=== PATIENT | female | born 1950 | race Caucasian/White ===

== ENCOUNTER 2016-03-09 12:12 | Outpatient (CLI) | payer OTHER | END 2016-03-09 12:13 | disposition home or self-care (01) | DX: Z00.00 Encounter for general adult medical examination without abnormal findings (principal); E03.9 Hypothyroidism, unspecified ==

== ENCOUNTER 2016-03-29 13:00 | Outpatient (CLI) | payer OTHER | END 2016-03-29 13:01 | disposition home or self-care (01) | DX: Z12.31 Encounter for screening mammogram for malignant neoplasm of breast (principal) ==

== ENCOUNTER 2016-05-17 09:32 | Outpatient (CLI) | payer OTHER | END 2016-05-17 09:33 | disposition home or self-care (01) | DX: E03.9 Hypothyroidism, unspecified (principal) ==

== ENCOUNTER → 2016-08-17 | Outpatient (CLI) | payer OTHER ==
[2016-08-17 13:52] LABS: THYROID STIMULATING HORMONE 2.38 uIU/mL (0.34-5.60)
== END ==
LOC: LAB.WCP 08:00
PROVIDERS: ATTEND Physician Assistant Medical
DX: E03.9 Hypothyroidism, unspecified (principal)
CPT/HCPCS: 36415; 84439; 84443

== ENCOUNTER 2017-06-11 08:49 | Outpatient (CLI) | payer MEDICARE, OTHER ==
--- NOTE | 2017-06-11 16:50 | XRAY Report ---
EXAM: RIGHT SHOULDER RADIOGRAPHY EXAM DATE: 06/11/2017 09:44 AM. CLINICAL HISTORY: RIGHT ARM PAIN. COMPARISON: None. TECHNIQUE: 3 views. FINDINGS: Bones: Normal. No fracture or bone lesion. Joints: The glenohumeral and acromioclavicular joints are intact with minimal degenerative changes of the AC joint. Soft tissues: The visualized hemithorax is unremarkable. No soft tissue swelling. IMPRESSION: Minimal degenerative changes at the AC joint. [facility] Referring Provider Line: [phone] SITE ID: [id number]
--- NOTE | 2017-06-11 21:20 | XRAY Report ---
EXAM: CERVICAL SPINE RADIOGRAPHY EXAM DATE: 06/11/2017 09:42 AM. CLINICAL HISTORY: ARM PAIN RIGHT. COMPARISONS: None. TECHNIQUE: 3 views. FINDINGS: Alignment: Normal. No spondylolisthesis or scoliosis. Bones: The cervical vertebral bodies and posterior elements are well visualized from the skull base t hrough C7-T1. No fracture or bone lesion. Disks: Multilevel moderate disk degeneration with endplate proliferation and anterior osteophyte mid and lower cervical spine. Facets: Moderate facet arthrosis. Soft Tissues: Heterogeneous mineralization projecting the left paravertebral region at C6-C7. No prev ertebral soft tissue swelling. The visualized lung apices are grossly clear. IMPRESSION: Multilevel moderate disk degeneration and facet arthrosis. Heterogeneous mineralization p rojecting in the left paravertebral region at C6-C7 may be due to extensive facet proliferation. [facility] Referring Provider Line: [phone] SITE ID: [id number]
== END 2017-06-11 08:50 | disposition home or self-care (01) ==
LOC: DI 08:49
PROVIDERS: ATTEND Family Medicine
DX: M50.30 Other cervical disc degeneration, unspecified cervical region (principal); M47.892 Other spondylosis, cervical region
CPT/HCPCS: 72040

== ENCOUNTER 2017-06-21 14:36 | Outpatient (CLI) | payer MEDICARE, OTHER ==
--- NOTE | 2017-06-21 18:29 | MRI Report ---
EXAM: MRI CERVICAL SPINE WITHOUT CONTRAST EXAM DATE: 06/21/2017 03:27 PM. CLINICAL HISTORY: Cervical radiculopathy. COMPARISONS: None. TECHNIQUE: Multiplanar, multisequence T1-weighted and fluid-sensitive sequences of the cervical spine without contrast. Other: None. FINDINGS: Neurologic Structures: The visualized posterior fossa structures are unremarkable. No signal abnormal ity in the visualized spinal cord. Alignment: There is relative straightening of the normal cervical lordotic curvature. Bone Marrow: No marrow edema or stress reaction. No erosive or destructive changes. Interspace Levels/Facets: C1-C2: Some arthritic changes, no stenosis. C2-C3: Disk osteophyte complex is present. Mild central stenosis. Moderate bilateral foraminal stenos is. C3-C4: Disk dehydration. Prominent facets. Mild central stenosis. No foraminal stenosis. C4-C5: Disk osteophyte complex. Moderate central stenosis. Severe right foraminal stenosis. Moderate- to-severe left foraminal stenosis. C5-C6: Disk osteophyte complex, some indentation of the cord. Severe central stenosis. Severe right f oraminal stenosis and moderate to severe left foraminal stenosis. C6-C7: Disk osteophyte complex with left-sided component. Moderate to severe central stenosis. Modera te to severe bilateral foraminal stenosis. C7-T1: Disk osteophyte complex. Moderate central stenosis. Moderate to severe bilateral foraminal cheryl nosis. T1-T2: Right paracentral annular tear and disk extrusion seen only on the sagittals, with significant mass effect on the right ventral cord. No abnormal cord signal. Musculature: Moderate fatty atrophy of the multifidus musculature. Other: The paravertebral and prevertebral soft tissues are normal. IMPRESSION: 1. Relative straightening of the normal cervical lordotic curvature. No listhesis or scoliosis. Moder ate fatty atrophy of the multifidus muscle is seen. 2. C2-C3 shows disk osteophyte complex and mild central stenosis. Moderate bilateral foraminal stenos is. 3. C3-C4 shows mild central stenosis, no foraminal stenosis. 4. C4-C5 shows disk osteophyte complex and moderate central stenosis. Severe right foraminal stenosis . 5. C5-C6 shows disk osteophyte complex, severe central stenosis, severe right foraminal and moderate to severe left foraminal stenosis. 6. C6-C7 shows moderate to severe central stenosis and moderate to severe bilateral foraminal stenosi s. 7. C7-T1 shows moderate central stenosis and moderate to severe bilateral foraminal stenosis. 8. T1-T2 on the sagittals only shows fairly large right paracentral disk extrusion with significant m ass effect on the ventral cord. No abnormal cord signal. [facility] Referring Provider Line: [phone] SITE ID: [id number]
== END 2017-06-21 14:37 | disposition home or self-care (01) ==
LOC: DI 14:36
PROVIDERS: ATTEND Family Medicine
DX: M54.12 Radiculopathy, cervical region (principal); M51.24 Other intervertebral disc displacement, thoracic region; M99.71 Connective tissue and disc stenosis of intervertebral foramina of cervical region; M25.78 Osteophyte, vertebrae
CPT/HCPCS: 72141

== ENCOUNTER 2019-01-22 08:00 | Outpatient (CLI) | payer MEDICARE, OTHER ==
[2019-01-22 14:36] LABS: BASOPHILS # (AUTO) 0.1 10^3/uL (0.0-0.1); BASOPHILS % (AUTO) 0.9 %; EOSINOPHILS # (AUTO) 0.3 10^3/uL (0.0-0.7); EOSINOPHILS % (AUTO) 5.3 %; HGB - HEMOGLOBIN 14.4 g/dL (12.0-16.0); LYMPHOCYTES # (AUTO) 1.9 10^3/uL (1.5-3.5); LYMPHOCYTES % (AUTO) 33.7 %; MEAN CORPUSCULAR HEMOGLOBIN 31.6 pg (27.0-31.0); MEAN CORPUSCULAR HGB CONC 31.9 g/dL (32.0-36.0); MEAN CORPUSCULAR VOLUME 98.9 fL (81.0-99.0); MEAN PLATELET VOLUME 11.5 fL (7.9-10.8); MONOCYTES # (AUTO) 0.5 10^3/uL (0.0-1.0); MONOCYTES % (AUTO) 8.9 %; NEUTROPHILS # (AUTO) 2.9 10^3/uL (1.5-6.6); NEUTROPHILS % (AUTO) 50.8 %; PLT - PLATELET COUNT 215 10^3/uL (130-450); RED BLOOD COUNT 4.56 10^6/uL (4.20-5.40); WHITE BLOOD COUNT 5.7 x10^3/uL (4.8-10.8)
[2019-01-22 14:45] LABS: ALBUMIN 4.2 g/dL (3.2-5.5); ALBUMIN/GLOBULIN RATIO 1.4 (1.0-2.2); ALKALINE PHOSPHATASE 46 IU/L (42-121); ALT ALANINE AMINOTRANSFERASE 24 IU/L (10-60); AST ASPARTATE AMINOTRANSFERASE 21 IU/L (10-42); BILIRUBIN,TOTAL 0.7 mg/dL (0.2-1.0); BUN - BLOOD UREA NITROGEN 18 mg/dL (6-20); CALCIUM 9.3 mg/dL (8.5-10.3); CARBON DIOXIDE - CO2 29 mmol/L (21-32); CHLORIDE 100 mmol/L (101-111); CHOL/HDL RATIO 2.3 (<4.4); CHOLESTEROL 157 mg/dL; CREATININE 0.8 mg/dL (0.4-1.0); GFR - MDRD 72 (>89); GLUCOSE 95 mg/dL (70-100); HDL CHOLESTEROL 67 mg/dL; LDL CHOLESTEROL,CALCULATED 75 mg/dL; LDL/HDL RATIO 1.1 (<4.4); SODIUM 141 mmol/L (135-145); TOTAL PROTEIN 7.2 g/dL (6.7-8.2); VLDL CHOLESTEROL 15 mg/dL
[2019-01-22 16:13] LABS: FREE T4 (FREE THYROXINE) 1.16 ng/dL (0.58-1.64)
== END 2019-01-22 23:59 | disposition home or self-care (01) ==
LOC: LAB.WCP 08:00
PROVIDERS: ATTEND Family Medicine
DX: D68.0 Von Willebrand disease (principal); I10 Essential (primary) hypertension; E03.9 Hypothyroidism, unspecified; D72.819 Decreased white blood cell count, unspecified
CPT/HCPCS: 36415; 80053; 80061; 83721; 84439; 84443; 85025

== ENCOUNTER 2020-01-14 08:35 | Outpatient (CLI) | payer MEDICARE, OTHER ==
[2020-01-14 11:36] LABS: BASOPHILS # (AUTO) 0.1 10^3/uL (0.0-0.1); BASOPHILS % (AUTO) 1.2 %; EOSINOPHILS # (AUTO) 0.3 10^3/uL (0.0-0.7); HGB - HEMOGLOBIN 13.8 g/dL (12.0-16.0); LYMPHOCYTES # (AUTO) 1.9 10^3/uL (1.5-3.5); LYMPHOCYTES % (AUTO) 38.9 %; MEAN CORPUSCULAR HEMOGLOBIN 32.9 pg (27.0-31.0); MEAN CORPUSCULAR HGB CONC 32.7 g/dL (32.0-36.0); MEAN CORPUSCULAR VOLUME 100.5 fL (81.0-99.0); MEAN PLATELET VOLUME 10.8 fL (7.9-10.8); MONOCYTES # (AUTO) 0.5 10^3/uL (0.0-1.0); MONOCYTES % (AUTO) 9.9 %; NEUTROPHILS # (AUTO) 2.2 10^3/uL (1.5-6.6); NEUTROPHILS % (AUTO) 44.4 %; PLT - PLATELET COUNT 219 10^3/uL (130-450); RED CELL DISTRIBUTION WIDTH 13.1 % (12.0-15.0)
[2020-01-14 12:24] LABS: ALBUMIN/GLOBULIN RATIO 1.3 (1.0-2.2); ALKALINE PHOSPHATASE 50 IU/L (42-121); ALT ALANINE AMINOTRANSFERASE 25 IU/L (10-60); AST ASPARTATE AMINOTRANSFERASE 20 IU/L (10-42); BILIRUBIN,TOTAL 0.8 mg/dL (0.2-1.0); BUN - BLOOD UREA NITROGEN 21 mg/dL (6-20); CALCIUM 8.8 mg/dL (8.5-10.3); CARBON DIOXIDE - CO2 29 mmol/L (21-32); CHLORIDE 101 mmol/L (101-111); CHOL/HDL RATIO 2.5 (<4.4); CHOLESTEROL 200 mg/dL; CREATININE 0.8 mg/dL (0.4-1.0); GLUCOSE 99 mg/dL (70-100); HDL CHOLESTEROL 80 mg/dL; LDL CHOLESTEROL,CALCULATED 109 mg/dL; LDL/HDL RATIO 1.4 (<4.4); SODIUM 138 mmol/L (135-145); TOTAL PROTEIN 7.1 g/dL (6.7-8.2); VLDL CHOLESTEROL 11 mg/dL
[2020-01-14 13:11] LABS: FREE T4 (FREE THYROXINE) 0.83 ng/dL (0.58-1.64)
== END 2020-01-14 23:59 | disposition home or self-care (01) ==
LOC: LAB.WCP 08:35
PROVIDERS: ATTEND Family Medicine
DX: I10 Essential (primary) hypertension (principal); E03.9 Hypothyroidism, unspecified
CPT/HCPCS: 36415; 80053; 80061; 83721; 84439; 84443; 85025